=== PATIENT | female | born 1940 | race Caucasian/White ===

== ENCOUNTER → 2018-03-30 12:31 | Outpatient (REF) | payer MEDICARE, MEDICAID, SELFPAY ==
[2018-03-30 21:16] LABS: COMMENT (LAB VIEW ONLY) 122.74 mg/dL; Microalb ug/mg Crea 53.5 ug/mg Cr
== END ==
LOC: NCHCN 12:31
PROVIDERS: PCP Family Medicine; Visit Provider Family Medicine
DX: E11.40 Type 2 diabetes mellitus with diabetic neuropathy, unspecified (principal)
CPT/HCPCS: 82043; 82570

== ENCOUNTER 2018-05-20 13:54 | Outpatient (REF) | payer MEDICARE, MEDICAID, SELFPAY ==
[2018-05-20 21:56] LABS: TSH (W/Ref FT4) 0.72 uIU/mL (0.358-3.74)
[2018-05-20 21:59] LABS: Vitamin D 25 Total 11.4 ng/ml (30-100)
[2018-05-20 22:50] LABS: Vitamin B12 371 pg/mL (193-986)
== END 2018-05-20 14:14 ==
LOC: NCHCN 13:54
PROVIDERS: PCP Family Medicine; Visit Provider Family Medicine
DX: R53.83 Other fatigue (principal); E55.9 Vitamin D deficiency, unspecified; E66.9 Obesity, unspecified
CPT/HCPCS: 82306; 82607; 84443

== ENCOUNTER 2018-09-28 10:45 | Outpatient (REF) | payer MEDICARE, MEDICAID, SELFPAY | END 2018-09-28 11:05 | LOC: NCHCN 10:45 | PROVIDERS: PCP Family Medicine; Visit Provider Family Medicine | DX: N39.0 Urinary tract infection, site not specified (principal) | CPT/HCPCS: 87077; 87086; 87186 ==

== ENCOUNTER 2019-06-22 17:44 | Outpatient (REF) | payer OTHER, MEDICAID, SELFPAY | END 2019-06-22 18:04 | LOC: NCHCO 17:44 | PROVIDERS: PCP Family Medicine; Visit Provider Family Medicine | DX: N39.0 Urinary tract infection, site not specified (principal) | CPT/HCPCS: 87077; 87086; 87186 ==

== ENCOUNTER 2020-01-31 16:55 | Outpatient (REF) | payer OTHER, MEDICAID, SELFPAY ==
[2020-01-31 21:07] LABS: COMMENT (LAB VIEW ONLY) 151.24 mg/dL; Microalb ug/mg Crea 31.5 ug/mg Cr
== END 2020-01-31 17:15 ==
LOC: NCHCN 16:55
PROVIDERS: PCP Family Medicine; Visit Provider Family Medicine
DX: E11.40 Type 2 diabetes mellitus with diabetic neuropathy, unspecified (principal)
CPT/HCPCS: 82043; 82570